=== PATIENT | female | born 1935 | race Caucasian/White ===

== ENCOUNTER 2021-01-21 12:22 | Emergency (ER) | payer MEDICARE, OTHER ==
[2021-01-21 13:18] LABS: HEMOGLOBIN 13.2 gm/dl (12.3-15.3); RED BLOOD COUNT 4.49 M/UL (4.00-5.10)
[2021-01-21 13:43] LABS: BUN/CREATININE RATIO 23 (0-10)
[2021-01-21] MEDS ORDERED: LASIX TAB 20 MG20 MG PO (19:26)
[2021-01-21] MEDS ORDERED: ACID-PEP20 MG PO (19:26)
== END 2021-01-21 19:40 | disposition home or self-care (01) ==
LOC: ER1 12:22
PROVIDERS: Physician Assistant
DX: R10.10 Upper abdominal pain, unspecified (principal); J90 Pleural effusion, not elsewhere classified; K57.30 Diverticulosis of large intestine without perforation or abscess without bleeding; I10 Essential (primary) hypertension; Z90.710 Acquired absence of both cervix and uterus; Z90.89 Acquired absence of other organs
CPT/HCPCS: 71045; 80053; 81001; 82150; 82550; 82553; 83690; 83874; 84484; 85025; 93005; 99284; J7120; Q9967

== ENCOUNTER 2021-03-03 01:47 | Emergency (ER) | payer MEDICARE, OTHER ==
[~2021-03-03 01:47] MED LIST: ACID-PEP20 MG PO; LASIX TAB 20 MG20 MG PO
[2021-03-03 02:13] LABS: HEMOGLOBIN 13.7 gm/dl (12.3-15.3); RED BLOOD COUNT 4.59 M/UL (4.00-5.10)
[2021-03-03 02:32] LABS: BUN/CREATININE RATIO 40 (0-10)
== END 2021-03-03 03:05 | disposition short-term general hospital (02) ==
LOC: ER1 01:47
PROVIDERS: Emergency Medicine
DX: I99.8 Other disorder of circulatory system (principal); I10 Essential (primary) hypertension; I48.91 Unspecified atrial fibrillation
CPT/HCPCS: 70450; 71045; 80053; 83735; 85025; 85610; 85730; 93005; 99285; J1644; J2270; J2405